=== PATIENT | female | born 1975 | race Caucasian/White ===

== ENCOUNTER → 2020-01-06 09:48 | Outpatient (CLI) | payer OTHER, SELFPAY ==
[2020-01-06 11:47] LABS: Cholesterol 164 mg/dL (140-199); Glucose 83 mg/dL (70-100); HDL Cholesterol 36 mg/dL (40-60); LDL Cholesterol Calculated 109 mg/dL (<100); Triglycerides 94 mg/dL (35-150)
== END ==
PROVIDERS: PCP Family Medicine; Referring Provider Family Medicine; Visit Provider Family Medicine
DX: Z13.220 Encounter for screening for lipoid disorders (principal); Z13.1 Encounter for screening for diabetes mellitus
CPT/HCPCS: 36415; 80061; 82947

== ENCOUNTER → 2020-03-25 15:44 | Outpatient (CLI) | payer OTHER, SELFPAY ==
--- NOTE | 2020-03-25 15:47 | DI.MG.S_ITS ---
BILATERAL DIGITAL SCREENING MAMMOGRAM 3D/2D WITH CAD: 03/25/2020 CLINICAL: Routine screening. Comparison is made to exam dated: 03/21/2019 mammogram - outside location. The tissue of both breasts is heterogeneously dense. This may lower the sensitivity of mammography. Current study was also evaluated with a Computer Aided Detection (CAD) system. No significant masses, calcifications, or other findings are seen in either breast. There has been no significant interval change. IMPRESSION: NEGATIVE There is no mammographic evidence of malignancy. A 1 year screening mammogram is recommended. This exam was interpreted at Station ID: [id number]. NOTE: For mammograms, a report in lay terms will be sent to the patient. Approximately 15% of breast malignancies will not be visualized mammographically. In the management of a palpable breast mass, a negative mammogram must not discourage biopsy of a clinically suspicious lesion. Electronically Signed By: Bong huang/danya:03/25/2020 16:56:31 letter sent: Normal Exam ACR BI-RADS Category 1: Negative 3341F
== END ==
PROVIDERS: PCP Family Medicine; Referring Provider Family Medicine; Visit Provider Family Medicine
DX: Z12.31 Encounter for screening mammogram for malignant neoplasm of breast (principal)
CPT/HCPCS: 77063; 77067

== ENCOUNTER → 2021-02-03 14:31 | Outpatient (CLI) | payer OTHER, SELFPAY ==
[2021-02-03 15:52] LABS: Erythrocyte Sedimentation Rate 12 MM/HR (0-20)
[2021-02-03 16:07] LABS: Rheumatoid Factor < 8.6 IU/mL (<12.0)
[2021-02-05 19:15] LABS: ANA Screen, IFA Positive (.)
[2021-02-05 23:05] LABS: CCP Antibodies IgG/IgA 8 units (0-19)
== END ==
PROVIDERS: PCP Family Medicine; Referring Provider Family Medicine; Visit Provider Family Medicine
DX: M25.50 Pain in unspecified joint (principal)
CPT/HCPCS: 36415; 85651; 86038; 86140; 86200; 86430

== ENCOUNTER → 2022-03-17 12:22 | Outpatient (CLI) | payer OTHER, SELFPAY ==
--- NOTE | 2022-03-17 12:23 | DI.RAD.S_ITS ---
PROCEDURE: XR SHOULDER RT MIN 2V INDICATIONS: Bilateral shoulder pain TECHNIQUE: 3 views of the shoulder were acquired. COMPARISON: [facility], CR, XR SHOULDER LT MIN 2V, 03/17/2022, 12:26. FINDINGS: Bones: No fractures or dislocations. No suspicious bony lesions. Visualized ribs appear intact. Mild acromioclavicular and glenohumeral joint osteoarthritic degenerative change. Soft tissues: 0.8 centimeter calcified granuloma in the visualized right lung. IMPRESSION: Mild osteoarthritis. No acute osseous lesion. If symptoms and/or clinical suspicion for pathology persists, further assessment with repeat radiographs (7-10 days) or advanced imaging (e.g. CT, MRI or bone scan) should be considered. Dictated by: Krystal Long MD, PhD on 03/17/2022 at 14:03 Approved by: Krystal Long MD, PhD on 03/17/2022 at 14:04
--- NOTE | 2022-03-17 12:23 | DI.RAD.S_ITS ---
PROCEDURE: XR SHOULDER LT MIN 2V INDICATIONS: Bilateral shoulder pain TECHNIQUE: 3 views of the shoulder were acquired. COMPARISON: [facility], CR, XR SHOULDER RT MIN 2V, 03/17/2022, 12:29. FINDINGS: Bones: No fractures or dislocations. No suspicious bony lesions. Visualized ribs appear intact. Mild acromioclavicular and glenohumeral joint osteoarthritis. Soft tissues: Small calcification noted adjacent to the lateral margin of the left humeral head compatible with calcific tendinitis. IMPRESSION: Left rotator cuff calcific tendinitis. No acute osseous lesion. If symptoms and/or clinical suspicion for pathology persists, further assessment with repeat radiographs (7-10 days) or advanced imaging (e.g. CT, MRI or bone scan) should be considered. Dictated by: Krystal Long MD, PhD on 03/17/2022 at 14:02 Approved by: Krystal Long MD, PhD on 03/17/2022 at 14:02
[2022-03-17 14:30] LABS: TSH w/ Reflex to FT4 1.49 uIU/mL (0.47-4.68)
[2022-03-20 12:22] LABS: Acetylcholine Blocking AB 12 % (0-25); Acetylcholine Receptor Bind AB <0.03 nmol/L (0.00-0.24)
== END ==
PROVIDERS: PCP Family Medicine; Referring Provider Physician Assistant; Visit Provider Physician Assistant
DX: M19.011 Primary osteoarthritis, right shoulder (principal); M75.32 Calcific tendinitis of left shoulder; M25.511 Pain in right shoulder; M25.512 Pain in left shoulder; M62.89 Other specified disorders of muscle
CPT/HCPCS: 36415; 73030; 83519; 84443

== ENCOUNTER → 2022-04-10 13:48 | Outpatient (CLI) | payer OTHER, SELFPAY ==
--- NOTE | 2022-04-10 13:50 | DI.RAD.S_ITS ---
PROCEDURE: XR TIBIA FUBULA RT 2V INDICATIONS: rolled ankle, sprain, r/o fx TECHNIQUE: 2 views of the tibia and fibula were acquired. COMPARISON: None. FINDINGS: Bones: No fractures or dislocations. No suspicious bony lesions. Soft tissues: No suspicious soft tissue calcifications or masses. There is lateral malleolar soft tissue swelling. IMPRESSION: Lateral malleolar soft tissue swelling without bony injury visualized. If pain persists, followup imaging in 5-7 days is recommended to exclude occult fracture. Dictated by: Adriana Boston M.D. on 04/10/2022 at 14:40 Approved by: Adriana Boston M.D. on 04/10/2022 at 14:40
--- NOTE | 2022-04-10 13:50 | DI.RAD.S_ITS ---
PROCEDURE: XR ANKLE RT MIN 3V INDICATIONS: rolled ankle, sprain, r/o fx TECHNIQUE: 3 views of the ankle were acquired. COMPARISON: None. FINDINGS: Bones: No fractures or dislocations. Ankle mortise is normally aligned. No suspicious bony lesions. Soft tissues: There is marked lateral malleolar soft tissue swelling. There is a small tibiotalar joint effusion. IMPRESSION: Soft tissue swelling and joint effusion without obvious bony injury. If pain persists, followup imaging in 5-7 days is recommended to exclude occult fracture. Dictated by: Adriana Boston M.D. on 04/10/2022 at 14:39 Approved by: Adriana Boston M.D. on 04/10/2022 at 14:40
== END ==
PROVIDERS: PCP Family Medicine; Referring Provider Student in an Organized Health Care Education/Training Program; Visit Provider Student in an Organized Health Care Education/Training Program
DX: S93.401A Sprain of unspecified ligament of right ankle, initial encounter (principal); M79.604 Pain in right leg; M79.89 Other specified soft tissue disorders; M25.471 Effusion, right ankle; W19.XXXA Unspecified fall, initial encounter
CPT/HCPCS: 73590; 73610

== ENCOUNTER → 2022-05-03 09:36 | Outpatient (CLI) | payer OTHER, SELFPAY ==
--- NOTE | 2022-05-03 09:38 | DI.MRI.S_ITS ---
PROCEDURE: MR CERVICAL SPINE WO CON INDICATIONS: Weakness muscle fatigue proximal upper arms TECHNIQUE: Noncontrast sagittal T1 spin echo and T2 fast spin echo, sagittal STIR, foraminal oblique sagittal T2 fast spin echo, and axial gradient echo or T2 fast spin echo through the cervical spine. COMPARISON: None. FINDINGS: Image quality: Excellent. Alignment and Curvature: Mild straightening of the normal cervical lordosis. Bone Marrow: Marrow demonstrates normal overall signal. Spinal Cord: Visualized spinal cord has normal size and signal. No cerebellar tonsillar herniation. Paraspinous Soft Tissues: No paravertebral masses. Prevertebral soft tissues are normal in thickness. C2-C3: Normal appearance. C3-C4: Normal appearance. C4-C5: Normal appearance. C5-C6: Normal appearance. C6-C7: Normal appearance. C7-T1: Normal appearance. IMPRESSION: Mild straightening of the normal cervical lordosis may related to positioning or possibly muscle spasm. Otherwise unremarkable MRI of the cervical spine Approved by: Tj Romano M.D. on 05/04/2022 at 10:59
== END ==
PROVIDERS: PCP Family Medicine; Referring Provider Physician Assistant; Visit Provider Physician Assistant
DX: M54.12 Radiculopathy, cervical region (principal); M62.81 Muscle weakness (generalized); M62.89 Other specified disorders of muscle
CPT/HCPCS: 72141

== ENCOUNTER → 2023-01-11 09:27 | Outpatient (CLI) | payer OTHER, SELFPAY ==
[2023-01-12 15:47] LABS: Fecal Immunochemical Test Negative (Negative)
== END ==
PROVIDERS: PCP Family Medicine; Referring Provider Family Medicine; Visit Provider Family Medicine
DX: Z12.11 Encounter for screening for malignant neoplasm of colon (principal)
CPT/HCPCS: 82274

== ENCOUNTER → 2023-01-22 13:12 | Outpatient (CLI) | payer OTHER, SELFPAY ==
--- NOTE | 2023-01-22 13:13 | DI.MG.S_ITS ---
BILATERAL DIGITAL SCREENING MAMMOGRAM 3D/2D WITH CAD: 01/22/2023 CLINICAL: Routine screening. Family history of breast cancer. Comparison is made to exams dated: 03/25/2020 mammogram - [facility] and 03/21/2019 mammogram - outside location. Both breasts are heterogeneously dense, which may obscure small masses (category c / 51-75% glandular tissue). Current study was also evaluated with a Computer Aided Detection (CAD) system. No significant masses, calcifications, or other findings are seen in either breast. There has been no significant interval change. IMPRESSION: NEGATIVE There is no mammographic evidence of malignancy. A 1 year screening mammogram is recommended. Based on the Tyrer Cuzick model (a risk assessment model) the patient's lifetime risk is 14.5% and her 10 year risk is 3.0%. According to the ACR, ACS, and NCCN guidelines, an annual breast MRI exam along with mammogram is recommended if the patient's lifetime risk is 20% or greater. This exam was interpreted at Station ID: [id number]. NOTE: For mammograms, a report in lay terms will be sent to the patient. Approximately 15% of breast malignancies will not be visualized mammographically. In the management of a palpable breast mass, a negative mammogram must not discourage biopsy of a clinically suspicious lesion. Electronically Signed By: Marcin paul/danya:01/22/2023 14:01:05 letter sent: Normal Exam ACR BI-RADS Category 1: Negative 3341F
== END ==
PROVIDERS: PCP Family Medicine; Referring Provider Family Medicine; Visit Provider Family Medicine
DX: Z12.31 Encounter for screening mammogram for malignant neoplasm of breast (principal); Z80.3 Family history of malignant neoplasm of breast
CPT/HCPCS: 77063; 77067

== ENCOUNTER 2023-06-21 06:00 | Emergency (ER) | payer OTHER, SELFPAY ==
[2023-06-21] VITALS (30 sets, daily range): BP systolic 101–148; BP diastolic 61–94; PULSE 62–87; RESP 16–19; TEMP 36.9; O2SAT 92–100; BMI 34.1
--- NOTE | 2023-06-21 06:11 | DI.CT.S_ITS ---
PROCEDURE: CT ABDOMEN PELVIS W CON INDICATIONS: MIDEPIGASTRIC ABD PAIN, N/V TECHNIQUE: After the administration of intravenous contrast, axial sections acquired from the lung bases to the pubic symphysis. Coronal and sagittal reformats were performed. For radiation dose reduction, the following was used: automated exposure control, adjustment of mA and/or kV according to patient size. COMPARISON: None. FINDINGS: Image quality: Diagnostic. Lower Chest: 8-9 millimeter solid nodule in the right lower lobe. ABDOMEN: Liver: No solid mass. Gallbladder: The gallbladder is distended, with stones versus sludge. Focal gallbladder wall thickening. Biliary ducts: No biliary dilation. Pancreas: No ductal dilation. Spleen: Size is within normal limits. Adrenal Glands: No adrenal nodules. Kidneys and Ureters: No hydronephrosis. No solid mass. No complex renal cystic lesion which requires follow up. Stomach and Bowel: Normal colonic caliber, without significant wall thickening. Normal appendix. Peritoneum: No abnormal intraperitoneal fluid. No free air. Ventral Wall: No significant ventral hernia. Abdominal Nodes: No retroperitoneal or mesenteric adenopathy by size criteria. Vessels: Aorta and inferior vena cava are normal in size. PELVIS: Pelvic Organs: Unremarkable. Bladder: No bladder wall thickening, accounting for underdistention. Pelvic Nodes: No enlarged lymph nodes. Miscellaneous: No inguinal hernias are seen. Bones: No aggressive osseous abnormality. IMPRESSION: Suspected acute cholecystitis, with focal gallbladder wall thickening, gallbladder hydrops and probable gallstones. Consider right upper quadrant ultrasound for confirmation of stones. 8-9 millimeter solid nodule in the right lower lobe. Recommend three-month follow-up with low-dose chest CT, per Fleischner society guidelines. Dictated by: Steve Carrington M.D. on 06/21/2023 at 8:32 Approved by: Steve Carrington M.D. on 06/21/2023 at 8:36
--- NOTE | 2023-06-21 06:18 | ED_ITS ---
HPI - Abdominal Pain <Jeannie Godinez MD - Last Filed: 06/23/23 07:32> General Chief Complaint: Abdominal Pain Stated Complaint: abd pain Time Seen by Provider: 06/21/23 06:06 History of Present Illness HPI narrative: 47-year-old female with no significant past medical history presents by private vehicle from home for midepigastric abdominal pain, belching, back pain that began approximately 2:00 a.m. patient states that she was sleeping when at 2:00 a.m. she was awoken by back discomfort and significant midepigastric pain with belching. Pain is sharp, constant, wraps around under her ribs, nothing seems to make it better or worse. Patient tried [id number] medications for gas and upset stomach without relief. Pain was intense and eventually drove the patient to come to the emergency department for evaluation. Denies history of abdominal surgeries. Denies alcohol use, denies marijuana or other illicit substance use. Related Data Previous Rx's Medication Instructions Recorded epinephrine 0.3 mg/0.3 mL 0.3 mg (0.3 mL) IM ONCE #1 ea 06/05/20 injection, auto-injector (EpiPen) diazepam 5 mg tablet 5 mg PO .1Hour Prior to Test PRN 04/07/22 anxiety #2 tabs norethindrone 1.5 mg-ethinyl 1 tab PO DAILY #28 tabs 11/02/22 estradiol 30 mcg(21)/iron 75 mg(7) tablet (Junel FE 1.5/30 (28)) meloxicam 7.5 mg tablet 7.5 mg PO BID PRN pain #10 tabs 06/21/23 Allergies Allergy/AdvReac Type Severity Reaction Status Date / Time No Known Drug Allergies Allergy Verified 06/21/23 06:36 Patient History <Jeannie Godinez MD - Last Filed: 06/23/23 07:32> Medical History Eczema (~1995) Allergies (~2014) Ankle pain (~2011) Anemia (~1995) Ovarian cyst (~1992) Surgical History History of section Family History Father Diabetes mellitus Mother Diabetes mellitus Grandfather History of heart disease Grandmother Cancer Social History Smoking Status: Never smoker Smoking Status: Never smoker Exam <Jeannie Godinez MD - Last Filed: 06/23/23 07:32> Narrative Exam Narrative: Const: Awake, alert, uncomfortable, in pain Cardiac: regular rate, regular rhythm RESP: unlabored, clear bilaterally, no wheezing GI: Soft, midepigastric tenderness to deep palpation without rebound or guarding Skin: Warm, Dry, intact, no rashes Neuro: AO x3, CN II-XII grossly intact, moves all extremities Initial Vital Signs Initial Vital Signs: Vital Signs Pulse Rate 70 06/21/23 06:15 Pulse Oximetry 100 06/21/23 06:15 <Jeannie Sanon DO - Last Filed: 06/21/23 19:47> Initial Vital Signs Initial Vital Signs: Vital Signs Pulse Rate 70 06/21/23 06:15 Pulse Oximetry 100 06/21/23 06:15 Course <Jeannie Godinez MD - Last Filed: 06/23/23 07:32> Orders Ordered: Discontinued Medications Sodium Chloride (Normal Saline 0.9%) 1,000 mls @ 1,000 mls/hr IV BOLUS ONE Stop: 06/21/23 07:09 Last Infusion: 06/21/23 07:20 Dose: Infused Documented By: Admin: 06/21/23 06:25 Dose: 1,000 mls/hr Documented By: HNG Sodium Chloride (Normal Saline 0.9%) 1,000 mls @ 150 mls/hr IV CONT SYDNIE Last Infusion: 06/21/23 15:53 Dose: Infused Documented By: Admin: 06/21/23 12:02 Dose: 150 mls/hr Documented By: SPF Piperacillin Sod/Tazobactam (Sod 4.5 gm/ Sodium Chloride) 100 mls @ 200 mls/hr IV NOW ONE Stop: 06/21/23 13:29 Last Infusion: 06/21/23 14:23 Dose: Infused Documented By: Admin: 06/21/23 13:53 Dose: 200 mls/hr Documented By: FL Ketorolac Tromethamine (Ketorolac 30 Mg/Ml Vial) 15 mg IV NOW ONE Stop: 06/21/23 08:43 Last Admin: 06/21/23 08:49 Dose: 15 mg Documented By: FLORENCE Morphine Sulfate (Morphine 4 Mg/Ml Inj) 4 mg IV NOW ONE Stop: 06/21/23 06:11 Last Admin: 06/21/23 06:26 Dose: 4 mg Documented By: DIONE Ondansetron HCl (Ondansetron 4 Mg/2 Ml Inj) 4 mg IV NOW ONE Stop: 06/21/23 06:11 Last Admin: 06/21/23 06:25 Dose: 4 mg Documented By: DIONE Vital Signs Vital signs: Vital Signs - 8 hr 06/21/23 12:15 06/21/23 12:16 06/21/23 12:16 Pulse Rate 83 78 Respiratory Rate Blood Pressure 117/82 Pulse Oximetry 98 98 Oxygen Delivery Method Room Air 06/21/23 12:30 06/21/23 12:31 06/21/23 12:31 Pulse Rate 71 76 Respiratory Rate Blood Pressure 106/73 Pulse Oximetry 99 98 Oxygen Delivery Method Room Air 06/21/23 13:00 06/21/23 13:00 06/21/23 13:30 Pulse Rate 73 Respiratory Rate Blood Pressure 116/66 111/75 Pulse Oximetry 99 Oxygen Delivery Method Room Air 06/21/23 13:30 06/21/23 14:00 06/21/23 14:00 Pulse Rate 70 79 Respiratory Rate Blood Pressure 113/80 Pulse Oximetry 99 98 Oxygen Delivery Method Room Air 06/21/23 14:30 06/21/23 14:30 06/21/23 15:00 Pulse Rate 70 Respiratory Rate Blood Pressure 113/69 122/67 Pulse Oximetry 99 Oxygen Delivery Method 06/21/23 15:00 06/21/23 15:30 06/21/23 15:30 Pulse Rate 70 64 Respiratory Rate Blood Pressure 115/70 Pulse Oximetry 98 98 Oxygen Delivery Method 06/21/23 16:13 Pulse Rate Respiratory Rate 16 Blood Pressure Pulse Oximetry Oxygen Delivery Method <Jeannie Sanon, - Last Filed: 06/21/23 19:47> Orders Ordered: Discontinued Medications Sodium Chloride (Normal Saline 0.9%) 1,000 mls @ 1,000 mls/hr IV BOLUS ONE Stop: 06/21/23 07:09 Last Infusion: 06/21/23 07:20 Dose: Infused Documented By: Admin: 06/21/23 06:25 Dose: 1,000 mls/hr Documented By: DIONE Sodium Chloride (Normal Saline 0.9%) 1,000 mls @ 150 mls/hr IV CONT SYDNIE Last Infusion: 06/21/23 15:53 Dose: Infused Documented By: Admin: 06/21/23 12:02 Dose: 150 mls/hr Documented By: FLORENCE Piperacillin Sod/Tazobactam (Sod 4.5 gm/ Sodium Chloride) 100 mls @ 200 mls/hr IV NOW ONE Stop: 06/21/23 13:29 Last Infusion: 06/21/23 14:23 Dose: Infused Documented By: Admin: 06/21/23 13:53 Dose: 200 mls/hr Documented By: JIMMY Ketorolac Tromethamine (Ketorolac 30 Mg/Ml Vial) 15 mg IV NOW ONE Stop: 06/21/23 08:43 Last Admin: 06/21/23 08:49 Dose: 15 mg Documented By: FLORENCE Morphine Sulfate (Morphine 4 Mg/Ml Inj) 4 mg IV NOW ONE Stop: 06/21/23 06:11 Last Admin: 06/21/23 06:26 Dose: 4 mg Documented By: DIONE Ondansetron HCl (Ondansetron 4 Mg/2 Ml Inj) 4 mg IV NOW ONE Stop: 06/21/23 06:11 Last Admin: 06/21/23 06:25 Dose: 4 mg Documented By: DIONE Vital Signs Vital signs: Vital Signs - 8 hr 06/21/23 12:15 06/21/23 12:16 06/21/23 12:16 Pulse Rate 83 78 Respiratory Rate Blood Pressure 117/82 Pulse Oximetry 98 98 Oxygen Delivery Method Room Air 06/21/23 12:30 06/21/23 12:31 06/21/23 12:31 Pulse Rate 71 76 Respiratory Rate Blood Pressure 106/73 Pulse Oximetry 99 98 Oxygen Delivery Method Room Air 06/21/23 13:00 06/21/23 13:00 06/21/23 13:30 Pulse Rate 73 Respiratory Rate Blood Pressure 116/66 111/75 Pulse Oximetry 99 Oxygen Delivery Method Room Air 06/21/23 13:30 06/21/23 14:00 06/21/23 14:00 Pulse Rate 70 79 Respiratory Rate Blood Pressure 113/80 Pulse Oximetry 99 98 Oxygen Delivery Method Room Air 06/21/23 14:30 06/21/23 14:30 06/21/23 15:00 Pulse Rate 70 Respiratory Rate Blood Pressure 113/69 122/67 Pulse Oximetry 99 Oxygen Delivery Method 06/21/23 15:00 06/21/23 15:30 06/21/23 15:30 Pulse Rate 70 64 Respiratory Rate Blood Pressure 115/70 Pulse Oximetry 98 98 Oxygen Delivery Method 06/21/23 16:13 Pulse Rate Respiratory Rate 16 Blood Pressure Pulse Oximetry Oxygen Delivery Method MDM - Abdominal Pain <Jeannie Godinez MD - Last Filed: 06/23/23 07:32> Lab Data 06/21/23 06:15 06/21/23 06:15 Labs: Lab Results 06/21/23 06/21/23 Range/Units 06:15 07:39 WBC 9.3 (4.5-11.0) X10^3/uL RBC 4.39 (4.0-5.2) X10^6/uL Hgb 13.1 (12.0-16.0) g/dL Hct 39.0 (36-46) % MCV 88.9 (80-100) fL MCH 29.9 (26-34) PG MCHC 33.6 (30-36) % RDW 13.8 (11.6-14.8) % Plt Count 271 (150-400) X10^3/uL Neut % (Auto) 68.2 (50-75) % Lymph % (Auto) 23.6 L (25-40) % [place]ade % (Auto) 6.6 (3-14) % Eos % (Auto) 0.8 L (2-4) % Baso % (Auto) 0.8 (0-2) % Neut # (Auto) 6400 (1452-7469) /uL Lymph # (Auto) 2200 (0274-4839) /uL Dade # (Auto) 600 (0-900) /uL Eos # (Auto) 100 (0-450) /uL Baso # (Auto) 100 (0-100) /uL Sodium 140 (137-145) mmol/L Potassium 4.1 (3.4-5.1) mmol/L Chloride 108 H (98-107) mmol/L Carbon Dioxide 23 (22-32) mmol/L BUN 8 (7-17) mg/dL Creatinine 0.68 (0.52-1.04) mg/dL Estimated GFR > 60 (>60) mL/min BUN/Creatinine Ratio 11.8 (6-22) Glucose 111 H (70-100) mg/dL Lactate 1.9 (0.7-2.1) mmol/L Calcium 9.6 (8.4-10.2) mg/dL Total Bilirubin 0.4 (0.2-1.3) mg/dL AST 32 (14-36) IU/L ALT 46 H (<35) IU/L Alkaline Phosphatase 65 (38-126) U/L Total Creatine Kinase 65 (30-135) U/L Troponin I < 0.012 (0.01-0.034) ng/mL Total Protein 8.2 (6.3-8.2) g/dL Albumin 4.4 (3.5-5.0) g/dL Globulin 3.8 (1.7-4.1) g/dL Albumin/Globulin Ratio 1.2 (1.0-2.8) Lipase 149 (23-300) U/L Serum , Qual Negative (Negative) Urine Color Yellow Urine Appearance Clear Urine pH 5.5 (4.5-8.0) Ur Specific [place] 1.020 (1.000-1.035) Urine Protein Negative (Negative) Urine Glucose (UA) Negative (Negative) g/dL Urine Ketones Trace H (NEGATIVE) Urine Occult Blood Negative (Negative) Urine Nitrate Negative (Negative) Urine Bilirubin Negative (NEGATIVE) Urine Urobilinogen 0.2 (0.2) E.U./dL Ur Leukocyte Esterase Negative (NEGATIVE) Urine RBC None seen (0-5/HPF) Urine WBC None seen (0-5/HPF) Ur Squamous Epith Cells None seen (0-5/HPF) Urine Bacteria None seen (None) Ur Culture Indicated? Cult not indicated Vol Urine Centrifuged 10ml (spun) MDM Narrative Medical decision making narrative: Uncomfortable but nontoxic patient presenting for above complaint. Hemodynamically stable. Abdomen is soft but she was tender to light and deep palpation in the midepigastric region particularly. We will order laboratory work, pain medications, nausea medications, IV fluids. Laboratory work thus far is unremarkable. WBC count 9.3, hemoglobin 13.1, platelets 271, sodium 140, potassium 4.1, creatinine 0.68, lactic acid 1.9, lipase 149. Pending CT imaging. Care of patient to be signed out to oncoming physician. <Jeannie Sanon, - Last Filed: 06/21/23 19:47> Lab Data Labs: Lab Results 06/21/23 06/21/23 Range/Units 06:15 07:39 WBC 9.3 (4.5-11.0) X10^3/uL RBC 4.39 (4.0-5.2) X10^6/uL Hgb 13.1 (12.0-16.0) g/dL Hct 39.0 (36-46) % MCV 88.9 (80-100) fL MCH 29.9 (26-34) PG MCHC 33.6 (30-36) % RDW 13.8 (11.6-14.8) % Plt Count 271 (150-400) X10^3/uL Neut % (Auto) 68.2 (50-75) % Lymph % (Auto) 23.6 L (25-40) % [place] % (Auto) 6.6 (3-14) % Eos % (Auto) 0.8 L (2-4) % Baso % (Auto) 0.8 (0-2) % Neut # (Auto) 6400 (4455-3619) /uL Lymph # (Auto) 2200 (2924-0339) /uL Dade # (Auto) 600 (0-900) /uL Eos # (Auto) 100 (0-450) /uL Baso # (Auto) 100 (0-100) /uL Sodium 140 (137-145) mmol/L Potassium 4.1 (3.4-5.1) mmol/L Chloride 108 H (98-107) mmol/L Carbon Dioxide 23 (22-32) mmol/L BUN 8 (7-17) mg/dL Creatinine 0.68 (0.52-1.04) mg/dL Estimated GFR > 60 (>60) mL/min BUN/Creatinine Ratio 11.8 (6-22) Glucose 111 H (70-100) mg/dL Lactate 1.9 (0.7-2.1) mmol/L Calcium 9.6 (8.4-10.2) mg/dL Total Bilirubin 0.4 (0.2-1.3) mg/dL AST 32 (14-36) IU/L ALT 46 H (<35) IU/L Alkaline Phosphatase 65 (38-126) U/L Total Creatine Kinase 65 (30-135) U/L Troponin I < 0.012 (0.01-0.034) ng/mL Total Protein 8.2 (6.3-8.2) g/dL Albumin 4.4 (3.5-5.0) g/dL Globulin 3.8 (1.7-4.1) g/dL Albumin/Globulin Ratio 1.2 (1.0-2.8) Lipase 149 (23-300) U/L Serum , Qual Negative (Negative) Urine Color Yellow Urine Appearance Clear Urine pH 5.5 (4.5-8.0) Ur Specific [place] 1.020 (1.000-1.035) Urine Protein Negative (Negative) Urine Glucose (UA) Negative (Negative) g/dL Urine Ketones Trace H (NEGATIVE) Urine Occult Blood Negative (Negative) Urine Nitrate Negative (Negative) Urine Bilirubin Negative (NEGATIVE) Urine Urobilinogen 0.2 (0.2) E.U./dL Ur Leukocyte Esterase Negative (NEGATIVE) Urine RBC None seen (0-5/HPF) Urine WBC None seen (0-5/HPF) Ur Squamous Epith Cells None seen (0-5/HPF) Urine Bacteria None seen (None) Ur Culture Indicated? Cult not indicated Vol Urine Centrifuged 10ml (spun) Imaging Data CT scan - abdomen/pelvis: Radiologist's Impression: [place] [address] CT Scan Report Signed Patient: Salud Uribe MR#: [id number] : 1975 Acct:[id number] Age/Sex: 47 / F Date of Service: 06/21/23 Loc: ED Accession Number: [id number] Procedure: CT abdomen pelvis w con Ordering Provider: Jeannie Godinez MD PROCEDURE: CT ABDOMEN PELVIS W CON INDICATIONS: MIDEPIGASTRIC ABD PAIN, N/V TECHNIQUE: After the administration of intravenous contrast, axial sections acquired from the lung bases to the pubic symphysis. Coronal and sagittal reformats were performed. For radiation dose reduction, the following was used: automated exposure control, adjustment of mA and/or kV according to patient size. COMPARISON: None. FINDINGS: Image quality: Diagnostic. Lower Chest: 8-9 millimeter solid nodule in the right lower lobe. ABDOMEN: Liver: No solid mass. Gallbladder: The gallbladder is distended, with stones versus sludge. Focal gallbladder wall thickening. Biliary ducts: No biliary dilation. Pancreas: No ductal dilation. Spleen: Size is within normal limits. Adrenal Glands: No adrenal nodules. Kidneys and Ureters: No hydronephrosis. No solid mass. No complex renal cystic lesion which requires follow up. Stomach and Bowel: Normal colonic caliber, without significant wall thickening. Normal appendix. Peritoneum: No abnormal intraperitoneal fluid. No free air. Ventral Wall: No significant ventral hernia. Abdominal Nodes: No retroperitoneal or mesenteric adenopathy by size criteria. Vessels: Aorta and inferior vena cava are normal in size. PELVIS: Pelvic Organs: Unremarkable. Bladder: No bladder wall thickening, accounting for underdistention. Pelvic Nodes: No enlarged lymph nodes. Miscellaneous: No inguinal hernias are seen. Bones: No aggressive osseous abnormality. IMPRESSION: Suspected acute cholecystitis, with focal gallbladder wall thickening, gallbladder hydrops and probable gallstones. Consider right upper quadrant ultrasound for confirmation of stones. 8-9 millimeter solid nodule in the right lower lobe. Recommend three-month follow-up with low-dose chest CT, per Fleischner society guidelines. Dictated by: Steve Carrington M.D. on 06/21/2023 at 8:32 Approved by: Steve Carrington M.D. on 06/21/2023 at 8:36 US - abdomen: Radiologist's Impression: Close Abdomen Ultrasound (Signed) Alisha Walters - 06/21/23 Abdomen/Pelvis CT (Signed) Steve Carrington - 06/21/23 Mammogram Screening (Signed) Marcin Jones - 01/22/23 Cervical Spine MRI (Signed) Tj Romano - 05/03/22 Tibia/Fibula X-Ray (Signed) Adriana Boston - 04/10/22 Ankle X-Ray (Signed) Kiviat,Adriana - 04/10/22 Shoulder X-Ray (Signed) Krystal Long - 03/17/22 Shoulder X-Ray (Signed) Krystal Long - 03/17/22 Mammogram Screening (Signed) Bong Castro - 03/25/20 Launch?Image [address] [address] Ultrasound Report Signed Patient: Salud Uribe MR#: [id number] : 1975 Acct:[id number] Age/Sex: 47 / F Date of Service: 06/21/23 Loc: ED Accession Number: [id number] Procedure: US abdomen limited Ordering Provider: Jeannie Sanon D.O. PROCEDURE: US ABDOMEN LIMITED INDICATIONS: RUQ pain, TECHNIQUE: Real-time focused scanning was performed of the abdomen, with image documentation. COMPARISON: [facility], CT, CT ABDOMEN PELVIS W CON, 06/21/2023, 7:34. FINDINGS: Liver measures 16 cm. No focal mass. Mobile small foci are present within the gallbladder. Gallbladder wall thickness measures 2 mm. Questionable, ill- defined focus of possible fluid along the anterior wall. Common bile duct measures 5 mm. Focal area of echogenicity is present in the common bile duct measures 7 mm. IMPRESSION: Cholelithiasis without wall thickening. Questionable ill-defined stone in the common bile duct without obstruction. MRCP may be obtained for further evaluation. Dictated by: Alisha Walters M.D. on 06/21/2023 at 10:38 Approved by: Alisha Walters M.D. on 06/21/2023 at 10:41 mrcp: Radiologist's Impression: Salud Uribe??She/Her/Hers??47??F??1975 ? Allergy/Adv: No Known Drug Allergies (More??) Close Abdomen MRI (Signed) Yi Krause - 06/21/23 Abdomen Ultrasound (Signed) Alisha Walters - 06/21/23 Abdomen/Pelvis CT (Signed) Steve Carrington - 06/21/23 Mammogram Screening (Signed) Marcin Jones - 01/22/23 Cervical Spine MRI (Signed) Tj Romano - 05/03/22 Tibia/Fibula X-Ray (Signed) Adriana Boston - 04/10/22 Ankle X-Ray (Signed) MerrittatAdriana - 04/10/22 Shoulder X-Ray (Signed) Krystal Long - 03/17/22 Shoulder X-Ray (Signed) Krystal Long - 03/17/22 Mammogram Screening (Signed) Bong Castro - 03/25/20 Launch?Image [address] [address] Magnetic Resonance Report Signed Patient: Salud Uribe MR#: [id number] : 1975 Acct:[id number] Age/Sex: 47 / F Date of Service: 06/21/23 Loc: ED Accession Number: [id number] Procedure: MR abdomen wo/w con Ordering Provider: Jeannie Sanon D.O. PROCEDURE: MR ABDOMEN WO/W CON INDICATIONS: concern for CBD stone, epigastric/ruq pain TECHNIQUE: Coronal HASTE, axial 2D FLASH in- and [id number]; axial breath-hold T2 FSE. Dynamic axial VIBE during the administration of contrast; post-contrast coronal VIBE or 2D FLASH with fat saturation from the hepatic dome to the iliac crests. Optional diffusion weighted imaging and ADC may be performed. COMPARISON: [facility], CT, CT ABDOMEN PELVIS W CON, 06/21/2023, 7:34. [facility], US, US ABDOMEN LIMITED, 06/21/2023, 9:37. FINDINGS: Image quality: Diagnostic. Lung bases: Unremarkable. Liver: Mild diffuse signal drop on T1 out of phase imaging consistent with steatosis. No focal liver lesions. Gallbladder: Distended gallbladder with thickened wall and trace pericholecystic fluid. There are numerous granular stones layering dependently. Mild reactive enhancement in the gallbladder fossa. Biliary ducts: Common bile duct is dilated measuring 1.0 cm in diameter. There is mild central intrahepatic biliary dilatation. The common duct tapers to the pancreatic head. On a single image, 08/06, there is suggestion of a dependently layering 3 mm stone in the distal common duct. Pancreas: No ductal dilation. No peripancreatic edema. No enhancing mass. Spleen: Size is within normal limits. Adrenal Glands: No adrenal nodules. Kidneys and Ureters: No hydronephrosis. No solid mass. No complex renal cystic lesion which requires follow up. Two exophytic right lower pole cysts. Stomach and Bowel: Stomach and visible bowel loops are within normal limits. Peritoneum: No abnormal intraperitoneal fluid. No free air. Ventral Wall: No hernia. Abdominal Nodes: No retroperitoneal or mesenteric adenopathy by size criteria. Vessels: Aorta and inferior vena cava are normal in size. Bones: No aggressive osseous abnormality. IMPRESSION: Cholelithiasis and findings equivocal for acute cholecystitis. Questionable dependently layering 3 mm calculus in the distal common bile duct. Mild extrahepatic biliary dilatation may be secondary to edema if there has been recent passage of gallstone versus intermittent obstruction by the possible 3 mm stone. Mild hepatic steatosis. Dictated by: Yi Krause M.D. on 06/21/2023 at 12:37 Approved by: Yi Krause M.D. on 06/21/2023 at 12:48 ECG Data Attestation: I personally reviewed and interpreted this ECG as follows: Prior ECG tracings: not available for review Interpretation: Sinus rhythm rate of 70 MS 136 QRS 86 QTC of 434. No acute ST changes appreciated. MDM Narrative Medical decision making narrative: Uncomfortable but nontoxic patient presenting for above complaint. Hemodynamically stable. Abdomen is soft but she was tender to light and deep palpation in the midepigastric region particularly. We will order laboratory work, pain medications, nausea medications, IV fluids. Laboratory work thus far is unremarkable. WBC count 9.3, hemoglobin 13.1, platelets 271, sodium 140, potassium 4.1, creatinine 0.68, lactic acid 1.9, lipase 149. UA shows trace ketones but otherwise negative. Pending CT imaging. Care of patient to be signed out to oncoming physician. 06/21/2023 Dr. Sanon: 47-year-old female signed out to myself by Dr. Godinez with midepigastric pain. Patient's labs were reviewed, is negative. EKG was reviewed. CT findings pending. CT shows focal gallbladder wall thickening, stones versus sludge, gallbladder distended no biliary dilation, 8 9 mm solid nodule right lower lobe of the lung. Does recommend 3 month follow up with low-dose CT. Abdominal ultrasound was obtained cholelithiasis without wall thickening questionable ill-defined stone in the common bile duct without obstruction MRCP maybe obtained for further evaluation. Patient received an additional dose of pain medication, had received fluids, morphine and Zofran had some improvement but then pain returned Patient was seen and evaluated by myself. Patient feels much better after Toradol. MRCP was obtained patient has cholelithiasis, does have distended gallbladder thickened wall trace pericholecystic fluid. Mild reactive had not has been gallbladder fossa common bile duct dilated measuring 1 cm mild central intrahepatic biliary dilation common duct tapers pancreatic head on single image ingestion of dependently layering 3 mm stone in the distal common duct. Dilation maybe secondary to passage of gallstone versus intermittent obstruction by possible 3 mm stone. Spoke with general surgery, Dr. Calvert he would asked that we consult with gastroenterology for possible ERCP if they felt more appropriate for cholecystectomy with cholangiogram to reconsult Dr. Calvert Spoke with Gastroenterology, spoke with Dr. Nato Sargent, gastroenterology would recommend transfer for ERCP. Would be happy to see patient at [facility], spoke with coordinator no beds available. Spoke with Dr. Holguin, gastroenterology at [facility]. They do recommend ERCP but stated could be as an outpatient if she can tolerate orals. They did take her contact information to reach out to her to set up as an outpatient procedure. Patient was able to tolerate fluids as well as solids here in the department, pain has never returned after Toradol. She would like to return home we did offer to let her continue to board for transfer for ERCP to other facility but [facility] does not have beds currently. She would prefer to return home. Discussed return precautions, low threshold to return. All questions answered. 06/21/20231945: Spoke with patient, had not updated her about the nodule in her right lower lobe. I called her at home she is continues to feel improved. Discussed she had a nodule in the right lower lobe that requires three-month follow up CT. She is to reach out to her primary care so they can set up. She follows with Dr. Feliciano. Patient expresses understanding. Discharge Plan Departure Patient Disposition: Home Clinical Impression: Pulmonary nodule, Choledocholithiasis Activity Restrictions/Additional Instructions: You do appear to have a stone in the common bile duct your imaging as well as stones in your gallbladder. I spoke with Gastroenterology, they should be reaching out to you to set up an outpatient ERCP this week. You may continue to eat and drink but I would avoid fatty foods. You may take Tylenol up to a 1000 mg every 6 hours as needed you can take meloxicam 1 tablet every 12 hours as needed. Prescription sent to [facility]. Please return for fevers new or worsening abdominal back or flank pain, any vomiting, if you are unable to eat or drink or other new or concerning changes. Prescriptions: New meloxicam 7.5 mg tablet 7.5 mg PO BID PRN (Reason: pain) Qty: 10 0RF No Action epinephrine [EpiPen] 0.3 mg/0.3 mL auto-injector 0.3 mg IM ONCE Qty: 1 2RF Rx Instructions: as a single dose; may repeat once diazepam 5 mg tablet 5 mg PO .1Hour Prior to Test PRN (Reason: anxiety) Qty: 2 0RF Rx Instructions: Take 1 tab one hour prior to procedure, if still anxious after 30-45 min take 2nd tab norethindrone-e.estradiol-iron [Junel FE 1.5/30 (28)] 1.5 mg-30 mcg (21)/75 mg (7) tablet 1 tab PO DAILY Qty: 28 11RF Referrals: Faina Camejo MD [Primary Care Provider] - Stand Alone Forms: Patient Portal/API
[2023-06-21 06:25] LABS: Add Manual Diff / Slide Review NO; Basophils Absolute Auto 100 /uL (0-100); Basophils Percent Auto 0.8 % (0-2); Eosinophils Absolute Auto 100 /uL (0-450); Eosinophils Percent Auto 0.8 % (2-4); Hemoglobin 13.1 g/dL (12.0-16.0); Lymphocytes Absolute Auto 2200 /uL (1100-4500); Lymphocytes Percent Auto 23.6 % (25-40); Mean Corpuscular HGB Conc 33.6 % (30-36); Mean Corpuscular Hemoglobin 29.9 PG (26-34); Mean Corpuscular Volume 88.9 fL (80-100); Monocytes Absolute Auto 600 /uL (0-900); Monocytes Percent Auto 6.6 % (3-14); Neutrophils Absolute Auto 6400 /uL (1500-7000); Neutrophils Percent Auto 68.2 % (50-75); Platelet Count 271 X10^3/uL (150-400); Red Blood Cell Count 4.39 X10^6/uL (4.0-5.2); Red Cell Distribution Width 13.8 % (11.6-14.8); White Blood Cell Count 9.3 X10^3/uL (4.5-11.0)
[2023-06-21] MEDS: ONDANSETRON 4 MG/2 ML INJ IV (06:25)
[2023-06-21] MEDS: SODIUM CHLORIDE 0.9% 1,000 ML 1000 ML IV (06:25)
[2023-06-21] MEDS: MORPHINE 4 MG/ML INJ IV (06:26)
[2023-06-21 06:32] LABS: Lactate (Lactic Acid) 1.9 mmol/L (0.7-2.1)
[2023-06-21 06:33] LABS: Alanine Aminotransferase 46 IU/L (<35); Albumin 4.4 g/dL (3.5-5.0); Albumin Globulin Ratio 1.2 (1.0-2.8); Alkaline Phosphatase 65 U/L (38-126); Aspartate Aminotransferase 32 IU/L (14-36); BUN Creatinine Ratio 11.8 (6-22); Bilirubin Total 0.4 mg/dL (0.2-1.3); Blood Urea Nitrogen 8 mg/dL (7-17); Calcium 9.6 mg/dL (8.4-10.2); Carbon Dioxide 23 mmol/L (22-32); Chloride 108 mmol/L (98-107); Creatine Kinase 65 U/L (30-135); Estimated Glomerular Filt Rate > 60 mL/min (>60); Globulin 3.8 g/dL (1.7-4.1); Glucose 111 mg/dL (70-100); HEMOLYSIS 15 (0-50); Lipase 149 U/L (23-300); Potassium 4.1 mmol/L (3.4-5.1); Sodium 140 mmol/L (137-145); Total Protein 8.2 g/dL (6.3-8.2)
[2023-06-21 06:45] LABS: Troponin I < 0.012 ng/mL (0.01-0.034)
[2023-06-21 06:54] LABS: Pregnancy Test Serum,Qual Negative (Negative)
[2023-06-21 07:55] LABS: Appearance Urine UA CLEAR; Bilirubin Urine UA NEGATIVE (NEGATIVE); Color Urine UA YELLOW; Glucose Urine UA NEGATIVE (Negative); Ketones Urine UA TRACE (NEGATIVE); Leukocyte Esterase Urine UA NEGATIVE (NEGATIVE); Nitrite Urine UA NEGATIVE (Negative); Occult Blood Urine UA NEGATIVE (Negative); Protein Urine UA NEGATIVE (Negative); Urobilinogen Urine UA 0.2 E.U./dL (0.2)
[2023-06-21 07:58] LABS: Urine Volume 10mL (spun); pH Urine UA 5.5 (4.5-8.0)
[2023-06-21 07:59] LABS: Bacteria Urine None Seen; Culture Indicated Urine Cult Not Indicated; RBC Urine None Seen (0-5/HPF); Squamous Epithelial Cell Urine None Seen (0-5/HPF); WBC Urine None Seen (0-5/HPF)
--- NOTE | 2023-06-21 08:42 | DI.US.S_ITS ---
PROCEDURE: US ABDOMEN LIMITED INDICATIONS: RUQ pain, TECHNIQUE: Real-time focused scanning was performed of the abdomen, with image documentation. COMPARISON: [facility], CT, CT ABDOMEN PELVIS W CON, 06/21/2023, 7:34. FINDINGS: Liver measures 16 cm. No focal mass. Mobile small foci are present within the gallbladder. Gallbladder wall thickness measures 2 mm. Questionable, ill-defined focus of possible fluid along the anterior wall. Common bile duct measures 5 mm. Focal area of echogenicity is present in the common bile duct measures 7 mm. IMPRESSION: Cholelithiasis without wall thickening. Questionable ill-defined stone in the common bile duct without obstruction. MRCP may be obtained for further evaluation. Dictated by: Alisha Walters M.D. on 06/21/2023 at 10:38 Approved by: Alisha Walters M.D. on 06/21/2023 at 10:41
[2023-06-21] MEDS: KETOROLAC 30 MG/ML VIAL 15 MG IV (08:49)
[2023-06-21] MEDS: SODIUM CHLORIDE 0.9% 1,000 ML 150 ML IV (12:02)
--- NOTE | 2023-06-21 12:48 | DI.MRI.S_ITS ---
PROCEDURE: MR ABDOMEN WO/W CON INDICATIONS: concern for CBD stone, epigastric/ruq pain TECHNIQUE: Coronal HASTE, axial 2D FLASH in- and [id number]; axial breath-hold T2 FSE. Dynamic axial VIBE during the administration of contrast; post-contrast coronal VIBE or 2D FLASH with fat saturation from the hepatic dome to the iliac crests. Optional diffusion weighted imaging and ADC may be performed. COMPARISON: [facility], CT, CT ABDOMEN PELVIS W CON, 06/21/2023, 7:34. [facility], US, US ABDOMEN LIMITED, 06/21/2023, 9:37. FINDINGS: Image quality: Diagnostic. Lung bases: Unremarkable. Liver: Mild diffuse signal drop on T1 out of phase imaging consistent with steatosis. No focal liver lesions. Gallbladder: Distended gallbladder with thickened wall and trace pericholecystic fluid. There are numerous granular stones layering dependently. Mild reactive enhancement in the gallbladder fossa. Biliary ducts: Common bile duct is dilated measuring 1.0 cm in diameter. There is mild central intrahepatic biliary dilatation. The common duct tapers to the pancreatic head. On a single image, 08/06, there is suggestion of a dependently layering 3 mm stone in the distal common duct. Pancreas: No ductal dilation. No peripancreatic edema. No enhancing mass. Spleen: Size is within normal limits. Adrenal Glands: No adrenal nodules. Kidneys and Ureters: No hydronephrosis. No solid mass. No complex renal cystic lesion which requires follow up. Two exophytic right lower pole cysts. Stomach and Bowel: Stomach and visible bowel loops are within normal limits. Peritoneum: No abnormal intraperitoneal fluid. No free air. Ventral Wall: No hernia. Abdominal Nodes: No retroperitoneal or mesenteric adenopathy by size criteria. Vessels: Aorta and inferior vena cava are normal in size. Bones: No aggressive osseous abnormality. IMPRESSION: Cholelithiasis and findings equivocal for acute cholecystitis. Questionable dependently layering 3 mm calculus in the distal common bile duct. Mild extrahepatic biliary dilatation may be secondary to edema if there has been recent passage of gallstone versus intermittent obstruction by the possible 3 mm stone. Mild hepatic steatosis. Dictated by: Yi Krause M.D. on 06/21/2023 at 12:37 Approved by: Yi Krause M.D. on 06/21/2023 at 12:48
[2023-06-21] MEDS: PIPERACILLIN/TAZO 4.5 GM in SODIUM CHLORIDE 0.9% 100 ML IV (13:53)
--- NOTE | 2023-06-21 13:53 | PC.NURSE ---
spoke to Pallavi at [facility] sent paperwork over for possible transfer spoke to Genny at [facility] who said they are quite full but pt is waitlisted there spoke to Cynthia at [facility] faxed over [employer]. Cynthia said as soon as she receives facesheet she will page her GI doc
== END 2023-06-21 16:14 | disposition home or self-care (01) ==
PROVIDERS: Emergency Medicine; Emergency Provider Emergency Medicine; PCP Family Medicine
DX: K80.50 Calculus of bile duct without cholangitis or cholecystitis without obstruction (principal); R91.1 Solitary pulmonary nodule; R07.9 Chest pain, unspecified
CPT/HCPCS: 36415; 74177; 74183; 76705; 80053; 81001; 82550; 83605; 83690; 84484; 84703; 85025; 93005; 93010; 96361; 96365; 96375; 99284; 99285; A9579; J1885; J2270; J2405; J2543; Q9967

== ENCOUNTER → 2023-07-15 09:31 | Outpatient (CLI) | payer OTHER, SELFPAY ==
[2023-07-15 12:32] LABS: Alanine Aminotransferase 46 IU/L (<35); Albumin 4.4 g/dL (3.5-5.0); Albumin Globulin Ratio 1.3 (1.0-2.8); Alkaline Phosphatase 61 U/L (38-126); Aspartate Aminotransferase 32 IU/L (14-36); Bilirubin Total 0.5 mg/dL (0.2-1.3); Blood Urea Nitrogen 9 mg/dL (7-17); Calcium 9.5 mg/dL (8.4-10.2); Carbon Dioxide 29 mmol/L (22-32); Chloride 106 mmol/L (98-107); Estimated Glomerular Filt Rate > 60 mL/min (>60); Globulin 3.3 g/dL (1.7-4.1); Glucose 116 mg/dL (70-100); HEMOLYSIS < 15 (0-50); Lipase 220 U/L (23-300); Potassium 4.1 mmol/L (3.4-5.1); Sodium 138 mmol/L (137-145); Total Protein 7.7 g/dL (6.3-8.2)
== END ==
PROVIDERS: PCP Family Medicine; Referring Provider Family Medicine; Visit Provider Family Medicine
DX: K80.50 Calculus of bile duct without cholangitis or cholecystitis without obstruction (principal)
CPT/HCPCS: 36415; 80053; 83690

== ENCOUNTER → 2023-11-18 08:11 | Outpatient (CLI) | payer OTHER, SELFPAY ==
[2023-11-18 09:02] LABS: Alanine Aminotransferase 55 IU/L (<35); Albumin 4.5 g/dL (3.5-5.0); Albumin Globulin Ratio 1.4 (1.0-2.8); Alkaline Phosphatase 73 U/L (38-126); Aspartate Aminotransferase 38 IU/L (14-36); BUN Creatinine Ratio 13.9 (6-22); Bilirubin Total 0.6 mg/dL (0.2-1.3); Blood Urea Nitrogen 10 mg/dL (7-17); Calcium 9.5 mg/dL (8.4-10.2); Carbon Dioxide 25 mmol/L (22-32); Chloride 105 mmol/L (98-107); Cholesterol 190 mg/dL (140-199); Estimated Glomerular Filt Rate > 60 mL/min (>60); Globulin 3.2 g/dL (1.7-4.1); Glucose 89 mg/dL (70-100); HDL Cholesterol 52 mg/dL (40-60); HEMOLYSIS < 15 (0-50); LDL Cholesterol Calculated 123 mg/dL (<100); Potassium 4.5 mmol/L (3.4-5.1); Sodium 140 mmol/L (137-145); Total Protein 7.7 g/dL (6.3-8.2); Triglycerides 77 mg/dL (35-150)
[2023-11-18 10:05] LABS: Hemoglobin A1C% w Est Avg Glu 5.2 % (4.0-6.0)
== END ==
LOC: LAB 08:12
PROVIDERS: PCP Family Medicine; Referring Provider Family Medicine; Visit Provider Family Medicine
DX: Z13.220 Encounter for screening for lipoid disorders (principal); R73.9 Hyperglycemia, unspecified; R74.8 Abnormal levels of other serum enzymes
CPT/HCPCS: 36415; 80053; 80061; 83036

== ENCOUNTER → 2023-11-23 08:59 | Outpatient (CLI) | payer OTHER, SELFPAY ==
--- NOTE | 2023-11-23 09:15 | DI.CT.S_ITS ---
PROCEDURE: CT CHEST WO CON INDICATIONS: f/u nodule LLL TECHNIQUE: Noncontrast 5 mm thick sections acquired from the pulmonary apices to the posterior costophrenic angles. 1 mm lung window, 5 mm thick coronal and sagittal and 7 mm axial MIP reformats were then acquired. For radiation dose reduction, the following was used: automated exposure control, adjustment of mA and/or kV according to patient size. COMPARISON: [facility], CT, CT ABDOMEN PELVIS W CON, 06/21/2023, 7:34. FINDINGS: Image quality: Diagnostic. Lower Neck: No enlarged lymph nodes. Thyroid: No thyroid nodules which require sonographic follow up, per consensus guidelines. Axillae: No enlarged lymph nodes. Chest Wall: Unremarkable. Bones: No acute fractures. No aggressive appearing lytic or blastic osseous lesions. Moderate multilevel degenerative changes of the spine. Lungs and Pleura: No pneumothorax or pleural effusions. Compared to CT abdomen and pelvis dated June 21, 2023, stable right lower lobe calcified granuloma measuring 9 mm (3/140). No suspicious pulmonary nodules or consolidation. Patent central airways. Heart: Heart size is normal. No pericardial effusion. Thoracic Vessels: The aorta and pulmonary arteries demonstrate normal size. Mediastinum and Joanna: No enlarged lymph nodes. Calcified, nonenlarged hilar and mediastinal lymph nodes. Esophagus: No wall thickening. No hiatal hernia. Upper Abdomen: Visualized upper abdomen solid organs and bowel loops appear normal. Subcentimeter calcified granulomas in the spleen. IMPRESSION: Compared to CT abdomen pelvis dated June 21, 2023, stable right lower lobe calcified granuloma measuring 9 mm. Additional sequela of prior granulomatous infection including calcified mediastinal lymphadenopathy as well as splenic granulomas, benign. No additional follow-up warranted. Dictated by: Roque Quiroz M.D. on 11/24/2023 at 15:36 Approved by: Roque Quiroz M.D. on 11/24/2023 at 15:52
== END ==
LOC: CT 08:59
PROVIDERS: PCP Family Medicine; Referring Provider Family Medicine; Visit Provider Family Medicine
DX: R91.1 Solitary pulmonary nodule (principal)
CPT/HCPCS: 71250

== ENCOUNTER → 2024-11-29 10:09 | Outpatient (CLI) | payer OTHER, SELFPAY ==
--- NOTE | 2024-11-29 10:11 | DI.MG.S_ITS ---
US breast RT limited, MM diagnostic mammo BI: 11/29/2024 BI-RADS: 2 CLINICAL: 49-year old female for bilateral diagnostic mammogram and right diagnostic breast ultrasound. Tyrer-Cuzick lifetime risk of 15.4%. No personal or first- degree family history of breast cancer. Current reported family history of breast cancer: maternal aunt, second maternal aunt and third maternal aunt. The patient reports a palpable abnormality (1 month) in the right breast. PRIOR EXAMS 01/22/2023, outside films 03/21/2020, outside films 03/21/2019, 10/15/2016. MAMMOGRAPHY TECHNIQUE: 2D and 3D (tomosynthesis) digital mammographic views obtained, with additional images as needed for full coverage. Current study was also evaluated with a Computer Aided Detection (CAD) system. ULTRASOUND TECHNIQUE TARGETED Right Breast Ultrasound: Real-time ultrasound exam was performed focused to area of clinical and/or imaging concern. Real-time lau scale and color doppler imaging of the area of clinical interest was performed with image documentation. DENSITY B. There are scattered areas of fibroglandular density. MAMMOGRAPHY FINDINGS Right (finding-1): Upper Inner Quadrant, Posterior depth, measuring 0.9cm: Underlying surface marker and correlating with palpable lump there is a circumscribed, oval, equal-density mass present. Left: No suspicious mass, asymmetry, microcalcification, or other abnormality seen. ULTRASOUND FINDINGS Right (finding-1): Upper Inner at 1:00, 9 cm from nipple, measuring 0.8 x 0.7 x 0.8 cm: Underlying surface marker and correlating with palpable lump and also with findings on mammogram there is a subcutaneous sebaceous cyst present. Doppler shows no vascularity. IMPRESSION: Right * No evidence of malignancy with benign findings. Left * No evidence of malignancy. RECOMMENDATIONS Right * Clinical follow-up is recommended, and further management of palpable abnormalities or other focal signs or symptoms should be based on the results of clinical evaluation. If palpable abnormality or other concerning symptom persists or progresses, further clinical evaluation should be considered. Bilateral * Annual screening mammography. COMMENTS: Findings and recommendations were conveyed to the patient during today's evaluation. OVERALL ASSESSMENT CATEGORY BI-RADS-2: Benign. The [employer] recommends annual screening mammography beginning at age 40 for women with average risk of breast cancer. ELECTRONICALLY SIGNED: Stephanie Solorio M.D. on 11/29/2024 at 11:52:37 AM PT Interpreting Station ID: [id number]
== END ==
PROVIDERS: PCP Family Medicine; Referring Provider Family Medicine; Visit Provider Family Medicine
DX: R92.8 Other abnormal and inconclusive findings on diagnostic imaging of breast (principal); N63.12 Unspecified lump in the right breast, upper inner quadrant; N60.81 Other benign mammary dysplasias of right breast; Z80.3 Family history of malignant neoplasm of breast
CPT/HCPCS: 76642; 77066; G0279